=== PATIENT | female | born 1930 | race Caucasian/White ===

== ENCOUNTER → 2016-05-19 | Outpatient (CLI) | payer MEDICARE, OTHER ==
[~2016-05-19] MED LIST: COZAAR25 MG PO; L-LYSINE500 MG PO; LUMIGAN 0.01%2.5 ML; NEURONTIN100 MG PO; NEURONTIN400 MG; NIACIN500 M3 PO; PROBIOTIC1 EAC1 PO; PROTONIX40 MG PO; THERA-VITE W/ B1 TAB PO; TUMS REGULAR ST1 TAB PO; VITAMIN B-121000 MCG PO; VITAMIN C WIT1000 M1 PO; VITAMIN D1000 UNIT PO; VITAMIN E400 UNI2 PO
--- NOTE | 2016-05-19 13:39 | NUR ---
Patient was unable to perform Pulmonary Function testing. After being placed in the PFT box, patient complained of sever clastrophobia. After attempting to have the patient place mouth over mouthpiece and place the nose clips, she refused to take part in the testing.
== END | disposition disaster alternative care site (69) ==
LOC: GRTH 11:00
DX: I27.2 Other secondary pulmonary hypertension (principal); Z53.8 Procedure and treatment not carried out for other reasons

== ENCOUNTER → 2016-06-29 | Outpatient (CLI) | payer MEDICARE, OTHER | END | disposition disaster alternative care site (69) | LOC: GRAD 13:00 | DX: R13.10 Dysphagia, unspecified (principal) | CPT/HCPCS: G8996; G8997; G8998 ==